=== PATIENT | female | born 1980 | race Two or more races ===

== ENCOUNTER 2021-09-02 02:17 | Emergency (ER) | payer OTHER ==
[~2021-09-02] VITALS: Ht 170.2 cm; Wt 99.8 kg
[2021-09-02] MEDS ORDERED: KETOROLAC TROMETHAMINE 60 MG INJ IM ONE ×2 (02:30→02:39)
[2021-09-02] MEDS ORDERED: NAPR-1009 PO (02:38)
[2021-09-02 02:43] VITALS: BP 138/92
--- NOTE | 2021-09-02 02:43 | NUR ---
Patient discharged to home in stable condition. Written and verbal after care instructions given. Patient verbalizes understanding of instructions. Stressed follow up or return to ER for worsening s/s.
== END 2021-09-02 02:44 | disposition home or self-care (01) ==
LOC: ER 02:28
DX: M79.601 Pain in right arm (principal); R03.0 Elevated blood-pressure reading, without diagnosis of hypertension; E11.9 Type 2 diabetes mellitus without complications; E78.00 Pure hypercholesterolemia, unspecified
CPT/HCPCS: 96372; 99283; J1885; A4663